=== PATIENT | female | born 1995 | race Caucasian/White ===

== ENCOUNTER 2019-10-23 09:49 | Emergency (ER) | payer MEDICAID ==
[2019-10-23] MEDS ORDERED: ONDANSETRON 4 MG TAB.RAPDIS PO ONE (10:03)
--- NOTE | 2019-10-23 10:06 | ER Document Report ---
ED General - General Chief Complaint: Abdominal Pain Stated Complaint: NAUSEA,VOMITING,ABDOMINAL PAIN Time Seen by Provider: 10/23/19 09:58 Mode of Arrival: Ambulatory Information source: Patient Notes: 24-year-old female presents emergency department with complaints of right upper quadrant epigastric pain that started all night long. Reports she has had nausea vomiting diarrhea all night long. Reports she has not slept at all. Reports that for the past 6 months she has had this happen several times. She has been evaluated with colonoscopy and EGD and they said it was not her gallbla dder. They also instructed her to take antacids. She reports nothing is helping. No fevers. Patient reports she did go out for a few drinks with a friend because she is visiting the area but she reports she does not drink alcohol on a regular basis and does not smoke marijuana. Right upper quadrant epigastric area tender to palpation I have greeted and performed a rapid initial assessment of this patient. A comprehensive ED assessment and evaluation of the patient, analysis of test results and completion of the medical decision making process will be conducted by additional ED providers. TRAVEL OUTSIDE OF THE [place] IN LAST 30 DAYS: No - Related Data Allergies/Adverse Reactions: azithromycin Allergy (Verified 10/23/19 10:03) Past Medical History - Social History Smoking Status: Never Smoker Chew tobacco use (# tins/day): No Frequency of alcohol use: Rare Drug Abuse: None Patient has suicidal ideation: No Patient has homicidal ideation: No Physical Exam - Vital signs Vitals: Temp Pulse Resp BP Pulse Ox 98.3 F 93 14 123/76 100 10/23/19 09:53 10/23/19 09:53 10/23/19 09:53 10/23/19 09:53 10/23/19 09:53 Course - Vital Signs Vital signs: Temp Pulse Resp BP Pulse Ox 98.3 F 93 14 123/76 100 10/23/19 09:53 10/23/19 09:53 10/23/19 09:53 10/23/19 09:53 10/23/19 09:53
--- NOTE | 2019-10-23 10:06 | ER Document Report ---
ED Medical Screen (RME) - General Chief Complaint: Abdominal Pain Stated Complaint: NAUSEA,VOMITING,ABDOMINAL PAIN Time Seen by Provider: 10/23/19 09:58 Mode of Arrival: Ambulatory Information source: Patient Notes: 24-year-old female presents emergency department with complaints of right upper quadrant epigastric pain that started all night long. Reports she has had nausea vomiting diarrhea all night long. Reports she has not slept at all. Reports that for the past 6 months she has had this happen several times. She has been evaluated with colonoscopy and EGD and they said it was not her gallbladder. They also instructed her to take antacids. She reports nothing is helping. No fevers. Patient reports she did go out for a few drinks with a friend because she is visiting the area but she reports she does not drink alcohol on a regular basis and does not smoke marijuana. Right upper quadrant epigastric area tender to palpation I have greeted and performed a rapid initial assessment of this patient. A comprehensive ED assessment and evaluation of the patient, analysis of test results and completion of the medical decision making process will be conducted by additional ED providers. TRAVEL OUTSIDE OF THE [place] IN LAST 30 DAYS: No - Related Data Allergies/Adverse Reactions: azithromycin Allergy (Verified 10/23/19 10:03) Past Medical History - Social History Chew tobacco use (# tins/day): No Frequency of alcohol use: Rare Drug Abuse: None Physical Exam - Vital signs Vitals: Temp Pulse Resp BP Pulse Ox 98.3 F 93 14 123/76 100 10/23/19 09:53 10/23/19 09:53 10/23/19 09:53 10/23/19 09:53 10/23/19 09:53 Course - Vital Signs Vital signs: Temp Pulse Resp BP Pulse Ox 98.3 F 93 14 123/76 100 10/23/19 09:53 10/23/19 09:53 10/23/19 09:53 10/23/19 09:53 10/23/19 09:53
[2019-10-23 10:28] LABS: ABSOLUTE MONOCYTES (AUTO) 0.4 10^3/uL (0.1-1.4); ABSOLUTE NEUT (AUTO) 6.9 10^3/uL (1.7-8.2); BASOPHILS % (AUTO) 0.4 % (0-2); EOSINOPHILS % (AUTO) 0.2 % (0-6); HEMATOCRIT 35.6 % (36.0-47.0); HEMOGLOBIN 12.1 g/dL (12.0-15.5); LYMPHOCYTES % (AUTO) 12.5 % (13-45); MEAN CORPUSCULAR HEMOGLOBIN 27.7 pg (27.0-33.4); MEAN CORPUSCULAR HGB CONC 33.9 g/dL (32.0-36.0); MEAN CORPUSCULAR VOLUME 82 fl (80-97); PLATELET COUNT 237 10^3/uL (150-450); RED BLOOD COUNT 4.35 10^6/uL (3.72-5.28); RED CELL DISTRIBUTION WIDTH 15.1 % (11.5-14.0); SEGMENTED NEUTROPHILS % (AUTO) 81.9 % (42-78); TOTAL CELLS COUNTED % (AUTO) 100 %; WHITE BLOOD COUNT 8.4 10^3/uL (4.0-10.5)
[2019-10-23 10:44] LABS: APPEARANCE,URINE SLIGHTLY-CLOUDY; BILIRUBIN,URINE NEGATIVE (NEGATIVE); COLOR,URINE YELLOW; GLUCOSE, URINE NEGATIVE (NEGATIVE); KETONES,URINE NEGATIVE (NEGATIVE); LEUKOCYTE ESTERASE,URINE NEGATIVE (NEGATIVE); NITRITE,URINE NEGATIVE (NEGATIVE); PROTEIN,URINE 30 mg/dL (NEGATIVE); URINE SPECIFIC GRAVITY 1.021; UROBILINOGEN,URINE NEGATIVE mg/dL (<2.0)
[2019-10-23 10:51] LABS: ALBUMIN 4.4 g/dL (3.5-5.0); ALKALINE PHOSPHATASE 99 U/L (38-126); AMYLASE 56 U/L (30-110); ANION GAP 10 (5-19); ASPARTATE AMINO TRANSFERASE 18 U/L (14-36); BILIRUBIN,TOTAL 0.4 mg/dL (0.2-1.3); BLOOD UREA NITROGEN 8 mg/dL (7-20); CALCIUM 9.5 mg/dL (8.4-10.2); CARBON DIOXIDE 26 mmol/L (22-30); CHLORIDE 104 mmol/L (98-107); GLUCOSE 107 mg/dL (75-110); POTASSIUM 4.5 mmol/L (3.6-5.0); TOTAL PROTEIN 7.6 g/dL (6.3-8.2)
--- NOTE | 2019-10-23 11:22 | RADIOLOGY REPORT (SQ) ---
EXAM DESCRIPTION: U/S ABDOMEN LIMITED W/O DOP COMPLETED DATE/TIME: 10/23/2019 11:12 am REASON FOR STUDY: epigastric ruq pain n/v/d COMPARISON: None. TECHNIQUE: Dynamic and static grayscale images acquired of the abdomen and recorded on PACS. Keyonao renetta selected color Doppler and spectral images recorded. LIMITATIONS: None. FINDINGS: PANCREAS: No masses. Visualized pancreatic duct normal caliber. LIVER: No masses. Echotexture normal. LIVER VASCULATURE: Normal directional flow of the main portal vein and hepatic veins. GALLBLADDER: No stones. Normal wall thickness. No pericholecystic fluid. ULTRASOUND-DETECTED MASSEY'S SIGN: Negative. INTRAHEPATIC DUCTS AND COMMON DUCT: CBD and intrahepatic ducts normal caliber. No filling defects. INFERIOR VENA CAVA: Normal flow. AORTA: No aneurysm. RIGHT KIDNEY: Normal size. Normal echogenicity. No solid or suspicious masses. No hydronephrosis. No calcifications. PERITONEAL AND RIGHT PLEURAL SPACE: No ascites or effusions. OTHER: No other significant findings. IMPRESSION: NORMAL RIGHT UPPER QUADRANT ULTRASOUND. TECHNICAL DOCUMENTATION: JOB ID: [id number] [employer]- All Rights Reserved Reading location - IP/workstation name: [email or web address]
[2019-10-23] MEDS ORDERED: IBUPROFEN 800 MG TABLET PO ONE (13:17)
--- NOTE | 2019-10-23 13:42 | ER Document Report ---
HPI - HPI Time Seen by Provider: 10/23/19 09:58 Pain Level: 2 Notes: 24-year-old female presents emergency department with complaints of right upper quadrant epigastric pain that started all night long. Reports she has had nausea vomiting diarrhea all night long. Reports she has not slept at all. Reports that for the past 6 months she has had this happen several times. She has been evaluated with colonoscopy and EGD and they said it was not her gallbladder. They also instructed her to take antacids. She reports nothing is helping. No fevers. Patient reports she did go out for a few drinks with a friend because she is visiting the area but she reports she does not drink alcohol on a regular basis and does not smoke marijuana. Right upper quadrant epigastric area tender to palpation - GASTROINTESTINAL Gastrointestinal: REPORTS: Abdominal Pain - REPRODUCTIVE Reproductive: DENIES: : Past Medical History - General Information source: Patient - Social History Smoking Status: Never Smoker Chew tobacco use (# tins/day): No Frequency of alcohol use: Rare Drug Abuse: None Family History: Reviewed & Not Pertinent Patient has suicidal ideation: No Patient has homicidal ideation: No - Medical History Medical History: Other - Chronic abdominal pain Surgical Hx: Negative - Immunizations Immunizations up to date: Yes Vertical Provider Document - CONSTITUTIONAL Notes: PHYSICAL EXAMINATION: GENERAL: Well-appearing, well-nourished and in no acute distress. HEAD: Atraumatic, normocephalic. EYES: Pupils equal round and reactive to light, extraocular movements intact, conjunctiva are normal. ENT: Nares patent, oropharynx clear without exudates. Moist mucous membranes. NECK: Normal range of motion, supple without lymphadenopathy LUNGS: Breath sounds clear to auscultation bilaterally and equal. No wheezes rales or rhonchi. HEART: Regular rate and rhythm without murmurs ABDOMEN: Soft, nondistended abdomen. Tenderness with palpation in the epigastric area. No guarding, no rebound. No masses appreciated. Female : deferred Musculoskeletal: Normal range of motion, no pitting or edema. No cyanosis. NEUROLOGICAL: Cranial nerves grossly intact. Normal speech, normal gait. Normal sensory, motor exams PSYCH: Normal mood, normal affect. SKIN: Warm, Dry, normal turgor, no rashes or lesions noted. - INFECTION CONTROL TRAVEL OUTSIDE OF THE [place] IN LAST 30 DAYS: No Course - Re-evaluation Re-evalutation: Patient appears well, nontoxic, vital signs within normal limits. Patient with mild epigastric tenderness but otherwise benign abdominal exam. Work-up today has been unremarkable. Labs normal. Right upper quadrant ultrasound unremarkable. Likely gastritis secondary to alcohol intake last night. Patient will be placed on appropriate medications, will be discharged home. 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 - Vital Signs Vital signs: Temp Pulse Resp BP Pulse Ox 98.1 F 77 18 120/63 100 10/23/19 12:00 10/23/19 12:00 10/23/19 12:00 10/23/19 12:10/23/19 12:00 - Laboratory Result Diagrams: 10/23/19 10:10 10/23/19 10:10 Laboratory results interpreted by me: 10/23/19 10/23/19 10:10 10:10 Hct 35.6 L RDW 15.1 H Lymph % (Auto) 12.5 L Seg Neutrophils % 81.9 H Urine Protein 30 H Urine Blood MODERATE H Discharge - Discharge Clinical Impression: Gastritis Qualifiers: Gastritis type: unspecified gastritis Chronicity: unspecified Gastritis bleeding: presence of bleeding unspecified Qualified Code(s): K29.70 - Gastritis, unspecified, without bleeding Condition: Stable Disposition: HOME, SELF-CARE Additional Instructions: Your symptoms appear to be most consistent with stomach or upper intestinal irritation. Please begin taking famotidine 40 mg in the morning and 40 mg at night. This medicine can be purchased directly [id number]. You may also take medicine such as Pepto-Bismol or Tums to assist with your pain. Please return to emergency department immediately if you have worsening of your pain, shortness of breath, vomiting, become unable to exert yourself due to pain or difficulty breathing, you pass out, or have any pain that radiates into your arms, jaw, or back. Please also return if you have any additional symptoms that are concerning to you. As we have discussed, the most important thing is lifestyle changes. You need to avoid smoking, sodas, tea, coffee, alcohol, spicy foods, and acidic foods such as citrus fruits, tomato based products, berries, and most fruit juices. Prescriptions: Sucralfate [Carafate 1 gm Tablet] 1 gm PO ACHS #60 tablet Famotidine [Pepcid] 40 mg PO BID #20 tablet Ondansetron [Zofran Odt 4 mg Tablet] 1 - 2 tab PO Q4H PRN #15 tab.rapdis PRN Reason: For Nausea/Vomiting Referrals: BRANDON QUINONEZ MD [Primary Care Provider] - Follow up as needed
[2019-10-23 14:37] VITALS: BP 114/64
== END 2019-10-23 14:36 | disposition home or self-care (01) ==
LOC: ER 09:49
DX: K29.70 Gastritis, unspecified, without bleeding (principal); R10.11 Right upper quadrant pain; R10.13 Epigastric pain; R11.2 Nausea with vomiting, unspecified; R19.7 Diarrhea, unspecified
CPT/HCPCS: 99284; 36415; 82150; 83690; 85025; 81025; 80053; 81001; 76705; J3490; S0119